=== PATIENT | female | born 1980 ===

== ENCOUNTER 2018-03-25 10:43 | Emergency (ER) | payer OTHER ==
[2018-03-25 10:57] VITALS: BMI 24.3
--- NOTE | 2018-03-25 11:20 | C.PDOC ---
History Of Present Illness 38 year old female, whose past medical history includes anxiety, palpitations, and migraine headaches, presents to the ED for evaluation of constant midsternal chest pain. Patient states her pain occasionally radiates down her left arm, and she also reports shortness of breath. She describes a palpating sensation. Patient has a history of palpitations and reports she has been experiencing palpitations for the past 5 days. She also reports dizziness and headache. Patient reports experiencing symptoms a long time ago in the past, but does not recall any further details. She was evaluated by her PMD today, who referred her to the ED for further cardiac workup. She denies recent febrile illness, cough, nausea, vomiting, diarrhea, abdominal pain, leg pain, recent travel, or family cardiac history. Patient states her LMP was one week ago. Time Seen by Provider: 03/25/18 11:18 Chief Complaint (Nursing): Chest Pain History Per: Patient History/Exam Limitations: no limitations Onset/Duration Of Symptoms: Days Current Symptoms Are (Timing): Still Present Pain Scale Rating Of: 7 Quality: "Pain" Additional History Per: Patient Past Medical History Reviewed: Historical Data, Nursing Documentation, Vital Signs Vital Signs: Last Vital Signs Temp 98.7 F 03/25/18 10:54 Pulse 65 03/25/18 10:54 Resp 20 03/25/18 10:54 BP 152/93 H 03/25/18 10:54 Pulse Ox 100 03/25/18 10:54 - Medical History PMH: Anxiety, Depression Surgical History: No Surg Hx Family History: States: Unknown Family Hx - Social History Hx Alcohol Use: No Hx Substance Use: No - Immunization History Hx Tetanus Toxoid Vaccination: No Hx Influenza Vaccination: No Hx Pneumococcal Vaccination: No Review Of Systems Constitutional: Negative for: Fever, Chills Cardiovascular: Positive for: Chest Pain, Palpitations Respiratory: Positive for: Shortness of Breath Musculoskeletal: Positive for: Arm Pain. Negative for: Leg Pain Neurological: Positive for: Headache, Dizziness Physical Exam - Physical Exam Appears: Non-toxic, No Acute Distress Skin: Normal Color, Warm, Dry Head: Atraumatic, Normacephalic Eye(s): bilateral: Normal Inspection Oral Mucosa: Moist Neck: Supple Chest: Symmetrical, No Deformity, Tenderness (to left chest wall, on palpation ) Cardiovascular: Rhythm Regular, No Murmur Respiratory: Normal Breath Sounds, No Rales, No Rhonchi, No Wheezing Extremity: Normal ROM, No Tenderness, Capillary Refill (less than 2 seconds ), No Deformity, No Swelling Neurological/Psych: Oriented x3, Normal Speech, Normal Cognition ED Course And Treatment - Laboratory Results Result Diagrams: 03/25/18 12:40 03/25/18 12:40 ECG: Interpreted By Me, Viewed By Me ECG Rhythm: Sinus Rhythm ECG Interpretation: No Changes From Prior (11/29/14) Interpretation Of ECG: Normal sinus rhythm at rate 67bpm. Normal intervals, normal axis. T wave inversions in leads V1-V3. Rate From EC O2 Sat by Pulse Oximetry: 100 (on RA) Pulse Ox Interpretation: Normal - Other Rad CXR X-Ray: Viewed By Me, Read By Radiologist Interpretation: HISTORY: chest pain. COMPARISON: No prior. TECHNIQUE: Chest PA and lateral. FINDINGS: LUNGS: No focal consolidation. Please note that chest x-ray has limited sensitivity for the detection of pulmonary masses. PLEURA: No significant pleural effusion identified. No definite pneumothorax . CARDIOVASCULAR: Heart size appears within normal limits. No atherosclerotic calcification present. OSSEOUS STRUCTURES: No acute osseous abnormality identified. VISUALIZED UPPER ABDOMEN: Unremarkable. OTHER FINDINGS: None. IMPRESSION: No focal consolidation, significant pleural effusion, or definite pneumothorax identified. Medical Decision Making Medical Decision Making: Impression: 38 year old female with chest pain Plan: * bloodwork * urinalysis * CXR * EKG * Tylenol PO * Aspirin PO * reassess and disposition Progress: Bloodwork, urinalysis, EKG, CXR ordered and reviewed. Tylenol PO and Aspirin PO given. Patient reports improvement of headache. Case discussed with Dr. Gómez. Advises to order repeat troponin and instruct patient to follow up in his office tomorrow. Patient understands follow-up ins tructions. Disposition Discussed With : Magdy Gómez Doctor Will See Patient In The: Office Counseled Patient/Family Regarding: Studies Performed, Diagnosis, Need For Followup - Disposition Referrals: Magdy Gómez DO [Doctor Osteopathy] - Disposition: HOME/ ROUTINE Disposition Time: 16:40 Condition: STABLE Instructions: Chest Pain (DC) Forms: Gen Discharge Inst K[place]z, [facility] (Kyrgyz) - POA Present On Arrival: None - Clinical Impression Clinical Impression: Chest pain - Scribe Statement The provider has reviewed the documentation as recorded by the Scribe (Sariah Dietz) Provider Attestation: All medical record entries made by the Scribe were at my direction and personally dictated by me. I have reviewed the chart and agree that the record accurately reflects my personal performance of the history, physical exam, medical decision making, and the department course for this patient. I have also personally directed, reviewed, and agree with the discharge instructions and disposition.
[2018-03-25 12:51] LABS: BASO # 0.1 K/uL (0.0-0.2); BASO % 0.9 % (0.0-2.0); EOS # 0.2 K/uL (0.0-0.7); EOS % 3.2 % (0.0-4.0); HEMOGLOBIN 13.4 g/dL (11.0-16.0); LYMPH % 30.4 % (20.0-40.0); MEAN CELL VOLUME 81.4 fL (81.0-99.0); MEAN CORPUSCULAR HEMOGLOBIN 27.9 pg (27.0-31.0); MEAN CORPUSCULAR HGB CONC 34.3 g/dL (33.0-37.0); MEAN PLATELET VOLUME 9.2 fL (7.2-11.7); MONO # 0.5 K/uL (0.0-0.8); MONO % 7.7 % (0.0-10.0); NEUT # 3.9 K/uL (1.8-7.0); NEUT % 57.8 % (50.0-75.0); NRBC % 0.3 % (0.0-2.0); RBC 4.81 Mil/uL (3.80-5.20); RED CELL DISTRIBUTION WIDTH 13.1 % (11.5-14.5); WHITE BLOOD COUNT 6.7 K/uL (4.8-10.8)
[2018-03-25 13:08] LABS: ALB/GLOB RATIO 1.3 (1.0-2.1); ALBUMIN 4.2 g/dL (3.5-5.0); ALT/SGPT 31 U/L (9-52); AST/SGOT 23 U/L (14-36); BLOOD UREA NITROGEN 14 mg/dL (7-17); CALCIUM 8.9 mg/dl (8.6-10.4); GFR NON-AFRICAN AMERICAN > 60
[2018-03-25 13:18] LABS: BARBITURATES, UR NEGATIVE (NEGATIVE); BENZODIAZEPINES, UR NEGATIVE (NEGATIVE); OPIATES, UR NEGATIVE (NEGATIVE); PHENCYCLIDINE, UR NEGATIVE (NEGATIVE)
--- NOTE | 2018-03-25 13:20 | RAD ---
HISTORY: chest pain COMPARISON: No prior. TECHNIQUE: Chest PA and lateral FINDINGS: LUNGS: No focal consolidation. Please note that chest x-ray has limited sensitivity for the detection of pulmonary masses. PLEURA: No significant pleural effusion identified. No definite pneumothorax . CARDIOVASCULAR: Heart size appears within normal limits. No atherosclerotic calcification present. OSSEOUS STRUCTURES: No acute osseous abnormality identified. VISUALIZED UPPER ABDOMEN: Unremarkable. OTHER FINDINGS: None. IMPRESSION: No focal consolidation, significant pleural effusion, or definite pneumothorax identified.
[2018-03-25 16:43] VITALS: BP 120/75; PULSE 58; RESP 20; TEMP 98.2
[2018-03-25 16:45] VITALS: O2SAT 100
--- NOTE | 2018-03-29 12:31 | CARD ---
APPROVED REPORT Date of service: 03/25/2018 EKG Measurement Heart [id number] <Conclusion> Normal sinus rhythm T wave abnormality, consider anterior ischemia Abnormal ECG
== END 2018-03-25 17:00 | disposition home or self-care (01) ==
LOC: C.ER 10:43
DX: R07.9 Chest pain, unspecified (principal)

== ENCOUNTER 2018-09-20 17:25 | Emergency (ER) | payer OTHER ==
[2018-09-20 17:25] VITALS: BMI 24.3
[2018-09-20 18:20] VITALS: BP 134/83; PULSE 60; RESP 20; TEMP 99.2; O2SAT 98
[2018-09-20] MEDS ORDERED: DiphenhydrAMINE 50 mg/ml Inj IVP STA (18:57)
[2018-09-20] MEDS ORDERED: Lactated Ringer's 1,000 ML IV STA (18:57)
--- NOTE | 2018-09-20 19:04 | C.PDOC ---
History Of Present Illness 38 y/o female presents to the ER complaining of headache which has been present for the past 6 days. Patient states that the pain is worse in the back of the head. Patient reports that feels nauseous but she did not vomit. Patient notes that she took Advil without relief. She states that she usually does not have headaches. She is concerned because this is the first time she had headache which lasted for such a long period of time. She does report a lot of stress at home. Denies having worst headache of life, fever,chills, photophobia, dizziness,CP, SOB, weakness ,numbness, and tingling sensation. She had her LMP 12 days ago. Time Seen by Provider: 09/20/18 18:50 Chief Complaint (Nursing): Headache History Per: Patient History/Exam Limitations: no limitations Onset/Duration Of Symptoms: Days Current Symptoms Are (Timing): Still Present Severity: Moderate Past Medical History Reviewed: Historical Data, Nursing Documentation, Vital Signs Vital Signs: Last Vital Signs Temp 99.2 F 09/20/18 18:17 Pulse 60 09/20/18 18:17 Resp 20 09/20/18 18:17 BP 134/83 09/20/18 18:17 Pulse Ox 98 09/20/18 18:17 Primary Care Provider: FAMILY PROVIDER,NO - Medical History PMH: Anxiety, Depression Surgical History: No Surg Hx Family History: States: No Known Family Hx - Social History Hx Alcohol Use: No Hx Substance Use: No - Immunization History Hx Tetanus Toxoid Vaccination: No Hx Influenza Vaccination: No Hx Pneumococcal Vaccination: No Review Of Systems Except As Marked, All Systems Reviewed And Found Negative. Constitutional: Negative for: Fever, Chills Cardiovascular: Negative for: Chest Pain Respiratory: Negative for: Shortness of Breath Gastrointestinal: Positive for: Nausea. Negative for: Vomiting, Abdominal Pain Neurological: Positive for: Headache. Negative for: Dizziness Physical Exam - Physical Exam Appears: Other (tearful) Skin: Normal Color, Warm, Dry Head: Atraumatic, Normacephalic, Tenderness (tenderness to posterior scalp), No Swelling Eye(s): bilateral: Normal Inspection, PERRL, EOMI Ear(s): Bilateral: Normal Nose: Normal Oral Mucosa: Moist Lips: Normal Appearing Neck: Normal ROM, No Midline Cervical Tenderness, Supple Lymphatic: No Adenopathy Chest: Symmetrical Cardiovascular: Rhythm Regular Respiratory: Normal Breath Sounds, No Rales, No Rhonchi, No Wheezing Gastrointestinal/Abdominal: Normal Exam, Soft Back: No Vertebral Tenderness, No Decreased ROM Extremity: Bilateral: Atraumatic Pulses: Left Carotid: Normal, Right Carotid: Normal DTR: Bicep (R): 2+, Bicep (L): 2+, Knee (R): 2+, Knee (L): 2+ Neurological/Psych: Oriented x3, Normal Speech, Normal Cranial Nerves, Normal Motor, Normal Sensation, No Expressive Aphasia, No Receptive Aphasia, No Dysarthria Extremity: Right: No Drift, Left: No Drift ED Course And Treatment - Laboratory Results Result Diagrams: 09/20/18 19:11 09/20/18 19:11 O2 Sat by Pulse Oximetry: 98 (RA) Pulse Ox Interpretation: Normal - CT Scan/US CT-Head Other Rad Studies (CT/US): Read By Radiologist, Radiology Report Reviewed CT/US Interpretation: EXAM: CT Head Without IV contrast. CLINICAL HISTORY: He adache. TECHNIQUE: Axial computed tomography images of the head/brain without intravenous contrast. COMPARISON: None provided. FINDINGS: BRAIN: No acute intraparenchymal hemorrhage. No mass lesion. No CT evidence for acute territorial infarct. No midline shift or extra-axial collections. there are small foci of basal ganglia calcification bilaterally, of doubtful clinical significance. VENTRICLES: No hydrocephalus. ORBITS: The orbits are unremarkable. SINUSES AND MASTOIDS: The paranasal sinuses and mastoid air cells are clear. BONES: No fracture. SOFT TISSUES: Unremarkable. IMPRESSION: No acute intracranial abnormality. Medical Decision Making Medical Decision [id number] Patient is a 38yo female with headache without any neuro defecits on exam. Afebrile. CT brain and labwork wnl. Feeling better s/p reglan and benad ryl. Steady gait. On reexam, appears much improved. Advised to follow-up closely with PMD and neurologist as needed. Will return with any worsening headache, vomiting, dizziness, fevers, neck pain/stiffness. Disposition Counseled Patient/Family Regarding: Studies Performed, Diagnosis, Need For Followup, Rx Given - Disposition Referrals: Ran Sanders MD [Staff Provider] - Disposition: HOME/ ROUTINE Disposition Time: 20:43 Condition: IMPROVED Additional Instructions: Rest. Increase fluids. Follow-up with your doctor and neurologist. Return if symptoms worsen or persist. Prescriptions: Acetaminophen/Butalbital/Caf [Fioricet] 1 tab PO Q4 3 Days #18 tab Instructions: Headache, Adult Forms: Gen Discharge Inst [place], [facility] ([place]) Print Language: MALAGASY - Clinical Impression Clinical Impression: Headache - PA / SOLAR BUSINESS DEVELOPER / Resident Statement MD/DO has reviewed & agrees with the documentation as recorded. - Scribe Statement The provider has reviewed the documentation as recorded by the Genoibkvng Garvin Provider Attestation All medical record entries made by the Christian were at my direction and personally dictated by me. I have reviewed the chart and agree that the record accurately reflects my personal performance of the history, physical exam, medical decision making, and the department course for this patient. I have also personally directed, reviewed, and agree with the discharge instructions and disposition.
[2018-09-20 19:14] LABS: BASO # 0.1 K/uL (0.0-0.2); BASO % 0.7 % (0.0-2.0); EOS # 0.2 K/uL (0.0-0.7); EOS % 2.2 % (0.0-4.0); HEMOGLOBIN 13.4 g/dL (11.0-16.0); LYMPH # 2.6 K/uL (1.0-4.3); LYMPH % 32.3 % (20.0-40.0); MEAN CELL VOLUME 81.1 fL (81.0-99.0); MEAN CORPUSCULAR HEMOGLOBIN 27.2 pg (27.0-31.0); MEAN CORPUSCULAR HGB CONC 33.6 g/dL (33.0-37.0); MONO # 0.6 K/uL (0.0-0.8); MONO % 6.9 % (0.0-10.0); NEUT # 4.7 K/uL (1.8-7.0); NEUT % 57.9 % (50.0-75.0); RBC 4.92 Mil/uL (3.80-5.20); RED CELL DISTRIBUTION WIDTH 12.9 % (11.5-14.5); WHITE BLOOD COUNT 8.1 K/uL (4.8-10.8)
[2018-09-20] MEDS ORDERED: DiphenhydrAMINE 50 mg/ml Inj ONE (19:15)
[2018-09-20 19:42] LABS: ALB/GLOB RATIO 1.2 (1.0-2.1); ALBUMIN 4.3 g/dL (3.5-5.0); ALT/SGPT 36 U/L (9-52); AST/SGOT 32 U/L (14-36); BLOOD UREA NITROGEN 12 mg/dL (7-17); CALCIUM 9.3 mg/dl (8.6-10.4); GFR NON-AFRICAN AMERICAN > 60
--- NOTE | 2018-09-21 10:13 | CT ---
Date of service: 09/20/2018 PROCEDURE: CT HEAD WITHOUT CONTRAST. HISTORY: Headache COMPARISON: None available. TECHNIQUE: Axial computed tomography images were obtained through the head/brain without intravenous contrast. Radiation dose: Total exam DLP = 938.58 mGy-cm. This CT exam was performed using one or more of the following dose reduction techniques: Automated exposure control, adjustment of the mA and/or kV according to patient size, and/or use of iterative reconstruction technique. FINDINGS: HEMORRHAGE: No intracranial hemorrhage. BRAIN: No mass effect or edema. Bilateral basal ganglia calcifications. Scattered parenchymal calcifications, likely post infectious etiologies. Neurocysticercosis should be considered. the amezquita-white matter differentiation appears intact. Please note that MRI with diffusion imaging is more sensitive in the detection of acute ischemic event. VENTRICLES: No hydrocephalus. CALVARIUM: Unremarkable. PARANASAL SINUSES: Unremarkable as visualized. No significant inflammatory changes. MASTOID AIR CELLS: Unremarkable as visualized. No inflammatory changes. OTHER FINDINGS: None. IMPRESSION: No acute intracranial pathology identified. Incidental findings as above. Preliminary impression was provided by [employer].
== END 2018-09-20 20:54 | disposition home or self-care (01) ==
LOC: C.ER 17:25
DX: R51 Headache (principal)
CPT/HCPCS: 70450; 80053; 85025; 96361; 96374; 96375; 99285; J1200; J2765; J7120